=== PATIENT | male | born 1930 | race Caucasian/White ===

== ENCOUNTER 2018-01-26 13:48 | Inpatient (IN) | payer MEDICARE ==
[~2018-01-26] VITALS: Ht 322.6 cm; Wt 54.0 kg
--- NOTE | ~2018-01-26 | PN ---
PATIENT:BEVERLEY VALENTIN MEDICAL RECORD: [id number] LOCATION:[facility] ADMISSION DATE: 01/26/18 PROGRESS NOTE DATE OF SERVICE: 02/01/2018 SUBJECTIVE: The patient's case was discussed with staff. He has no new complaint. OBJECTIVE: The patient denies intent to harm himself or others. He generally tolerates his medicines well. ASSESSMENT: No change in diagnoses. PLAN: Current medicines and therapies have been reviewed, both will be maintained. His long-term prognosis is guarded. TRANSINT:[id number] Voice Confirmation ID: [id number] DOCUMENT ID: [id number] VIDYA MCELROY MD at 0924 CC: [id number] DICTATION DATE: 02/01/18 1021 ACADEMIC SERVICES COORDINATOR: 02/01/18 1058 ADM IN [place] [id number] [place] [address]
--- NOTE | ~2018-01-26 | PN ---
PATIENT:BEVERLEY VALENTIN MEDICAL RECORD: [id number] LOCATION:[facility] ADMISSION DATE: 01/26/18 PROGRESS NOTE DATE OF SERVICE: 02/06/2018 SUBJECTIVE: The patient's case was discussed with staff. He has no new complaint. OBJECTIVE: The patient denies intent to harm himself or others. He generally tolerates his medicines well. Eye contact is fair. ASSESSMENT: No change in diagnoses. PLAN: Brief supportive and educational interventions were made. Current medicines have been reviewed and will be maintained. The patient's long-term prognosis is guarded. TRANSINT:[id number] Voice Confirmation ID: [id number] DOCUMENT ID: [id number] VIDYA MCELROY MD at 1017 CC: [id number] DICTATION DATE: 02/06/18 1052 TAIL SAWYER: 02/06/18 1101 ADM IN [place] [id number] [place] [id number]
--- NOTE | ~2018-01-26 | PN ---
PATIENT:BEVERLEY VALENTIN MEDICAL RECORD: [id number] LOCATION:[facility] ADMISSION DATE: 01/26/18 PROGRESS NOTE DATE OF SERVICE: 02/08/2018 SUBJECTIVE: The patient's case was discussed with staff. He has no new complaint. OBJECTIVE: The patient is only partially oriented. He has pretty limited insight about his situation. He has tolerated his initial doses of Aricept well and it does not seem to have significantly affected his appetite. He is still not sleeping very well and I am going to increase the dose of his trazodone slightly. He has made some paranoid statements, but he has not been actively aggressive with the staff. ASSESSMENT: No change in diagnoses. PLAN: Current medicines have been reviewed and will be maintained. He will be treated with a slightly higher dose of trazodone to assist with sleep consolidation. TRANSINT:[id number] Voice Confirmation ID: [id number] DOCUMENT ID: [id number] VIDYA MCELROY MD at 0946 CC: [id number] DICTATION DATE: 02/08/18 1030 WEB MARKETING ANALYST: 02/08/18 1048 ADM IN [place] [id number] [place] [address]
--- NOTE | ~2018-01-26 | PN ---
PATIENT:BEVERLEY VALENTIN MEDICAL RECORD: [id number] LOCATION:[facility] ADMISSION DATE: 01/26/18 PROGRESS NOTE DATE OF SERVICE: 01/31/2018 SUBJECTIVE: The patient's case was discussed with staff. He has no new complaint. OBJECTIVE: The patient ate 100% of his meals yesterday and slept for 9 hours. He is extremely confused and only oriented to person. He denies any intent to harm himself or others. ASSESSMENT: No change in diagnoses. PLAN: Supportive and educational interventions are made. Long-term prognosis is guarded. TRANSINT:[id number] Voice Confirmation ID: [id number] DOCUMENT ID: [id number] VIDYA MCELROY MD at 0930 CC: [id number] DICTATION DATE: 01/31/18 1243 REAL TIME ANALYST: 01/31/18 1425 ADM IN [place] [id number] [place] [id number]
--- NOTE | ~2018-01-26 | PN ---
PATIENT:BEVERLEY VALENTIN MEDICAL RECORD: [id number] LOCATION:[facility] ADMISSION DATE: 01/26/18 PROGRESS NOTE DATE OF SERVICE: 02/07/2018 SUBJECTIVE: The patient's case was discussed with staff. He has no new complaint. OBJECTIVE: The patient is in good behavioral control with limited insight about his condition. He has had some diarrhea, but other than that, he is doing well. He is eating and sleeping well. He has not been aggressive, and he is actually wearing his oxygen and has had no combativeness today. ASSESSMENT: No change in diagnoses. PLAN: The patient will be maintained on current medicines, which I have reviewed. His long-term prognosis is guarded. TRANSINT:[id number] Voice Confirmation ID: [id number] DOCUMENT ID: [id number] VIDYA MCELROY MD at 1017 CC: [id number] DICTATION DATE: 02/07/18 1255 SEWER PIPE LAYER HELPER: 02/07/18 1316 ADM IN [place] [address] [place] [address]
--- NOTE | ~2018-01-26 | PN ---
PATIENT:BEVERLEY VALENTIN MEDICAL RECORD: [id number] LOCATION:[facility] ADMISSION DATE: 01/26/18 PROGRESS NOTE DATE OF SERVICE: 02/05/2018 SUBJECTIVE: The patient's case was discussed with staff. He has no new complaint. OBJECTIVE: The patient is impaired cognitively, but is eating well. He denies intent to harm himself or others. ASSESSMENT: No change in diagnoses. PLAN: Supportive and educational interventions were made. Long-term prognosis is guarded. I am going to increase the patient's Aricept to 10 mg at bedtime. I am encouraged by the improvement in his eating. TRANSINT:[id number] Voice Confirmation ID: [id number] DOCUMENT ID: [id number] VIDYA MCELROY MD at 1043 CC: [id number] DICTATION DATE: 02/05/18 1003 FINE GRADE BULLDOZER OPERATOR: 02/05/18 1013 ADM IN [place] [address] [place] [address]
--- NOTE | ~2018-01-26 | PN ---
PATIENT:BEVERLEY VALENTIN MEDICAL RECORD: [id number] LOCATION:[facility] ADMISSION DATE: 01/26/18 PROGRESS NOTE DATE OF SERVICE: 02/09/2018 SUBJECTIVE: The patient's case was discussed with staff. He has no new complaint. OBJECTIVE: The patient denies intent to harm himself or others. He did not eat very well yesterday, but he is now compliant with medicines, so I am encouraged by that. He still intermittently is removing his oxygen and requires very frequent redirection about that. He did sleep well last night. ASSESSMENT: No change in diagnoses. PLAN: The patient is in good behavioral control, although he is severely impaired cognitively. I am hopeful that he can reasonably be transitioned to a long-term care setting soon. His family wants him to return home, but I am not sure they are going to be able to handle him and there will be some additional information and education given so that they are making a truly informed consent about the level of care that he needs. TRANSINT:[id number] Voice Confirmation ID: [id number] DOCUMENT ID: [id number] VIDYA MCELROY MD at 0909 CC: [id number] DICTATION DATE: 02/09/18 0955 THREAD DRAWER: 02/09/18 1100 ADM IN [place] [address] [place] [address]
--- NOTE | ~2018-01-26 | PN ---
PATIENT:BEVERLEY VALENTIN MEDICAL RECORD: [id number] LOCATION:[facility] ADMISSION DATE: 01/26/18 PROGRESS NOTE DATE OF SERVICE: 02/04/2018 SUBJECTIVE: The patient's case was discussed with staff. He has no new complaint. OBJECTIVE: The patient is in good behavioral control. He was given trazodone last night to assist with sleep consolidation and it seems to have significantly helped. He is doing a little better about wearing his oxygen. He has not been combative, but then he has someone with him all the time to constantly attend to his needs and redirect him. I suspect that under different circumstances he may well have shown some aggressive behavior. ASSESSMENT: No change in diagnoses. PLAN: Supportive and educational interventions were made. Long-term prognosis is guarded. TRANSINT:[id number] Voice Confirmation ID: [id number] DOCUMENT ID: [id number] VIDYA MCELROY MD at 0954 CC: [id number] DICTATION DATE: 02/04/18 1313 VP PURCHASING: 02/04/18 1321 ADM IN [facility] [address] [place] [address]
--- NOTE | ~2018-01-26 | PN ---
PATIENT:BEVERLEY VALENTIN MEDICAL RECORD: [id number] LOCATION:[facility] ADMISSION DATE: 01/26/18 PROGRESS NOTE DATE OF SERVICE: 01/28/2018 SUBJECTIVE: The patient's case was discussed with staff. He has no new complaint. OBJECTIVE: The patient is in good behavioral control today. He is not eating very well. He has pretty limited insight about his situation and he has not been combative. He is wearing his oxygen, which I think is helping him think more clearly. It is evident that he has an advanced dementia. I am going to start him on Aricept for its cognitive enhancing properties. ASSESSMENT: No change in diagnoses. PLAN: The patient will be monitored for clinical changes associated with the use of the Aricept. His long-term prognosis is guarded. TRANSINT:[id number] Voice Confirmation ID: [id number] DOCUMENT ID: [id number] VIDYA MCELROY MD at 1212 CC: [id number] DICTATION DATE: 01/28/18 1039 DIRECTOR OF MARKETING OPERATIONS: 01/28/18 1100 ADM IN [facility] [address] [place] [address]
--- NOTE | ~2018-01-26 | PSY ---
PATIENT NAME:BEVERLEY VALENTIN MEDICAL RECORD: [id number] : 32 LOCATION:[facility] ADMISSION DATE: 01/26/18 ACCOUNT: [id number] PSYCHIATRIC EVALUATION DATE OF EVALUATION: 01/27/18 IDENTIFYING DATA: The patient is 87 years old and he is admitted to the hospital on a voluntary basis. CHIEF COMPLAINT: Aggression. HISTORY OF PRESENT ILLNESS: The patient is referred to us by [facility]. He was admitted there initially because of altered thought processes, but he has continued to show increasing confusion, paranoia, and aggression. He argues with his family. He has been refusing medications. He accuses his of having sold their home that they are living in and then he becomes angry and says he wants to sell the hospital that we are in and that he has every right to sell it. He cannot be redirected. He clearly is impaired cognitively in a manner consistent with a dementing illness. 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 He also has pulmonary hypertension along with mitral and tricuspid regurgitation. 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 PAST PSYCHIATRIC HISTORY: Negative with the records I have so far. I do not know that he has been diagnosed with dementia, but this is not a new mental status change. By that I mean his behaviors may have become a problem, but I cannot imagine that he has not been declining intellectually for a long time. FAMILY HISTORY: Significant for hypertension, coronary artery disease, and diabetes. ALLERGIES: No known drug allergies. CURRENT MEDICATIONS: Include aspirin, Lipitor, Plavix, Lopressor, hydralazine, Monopril, Vasotec and a variety of minerals and vitamins. SOCIAL HISTORY: The patient is . He has 2 adult children. 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 He is originally from [place] and was a welder railcar mechanic. MENTAL STATUS EXAMINATION: The patient is awake, alert and oriented to person only. His mood is flat. His affect is constricted. Thought processes are disorganized. He has severe impairment of his memory, concentration, and abstraction abilities. He denies any active intent to harm himself or others and denies psychotic symptoms. ASSETS: Supportive family members. LIABILITIES: Limited insight. DIAGNOSTIC IMPRESSION: AXIS I: Senile dementia of the Alzheimer's type with behavioral disturbances. AXIS II: None. AXIS III: Hypertension, diabetes, coronary artery disease, mitral and tricuspid regurgitation, pulmonary fibrosis. AXIS IV: Moderate stressors. AXIS V: Global assessment of functioning is 20. PLAN: At this time, the patient is admitted to the hospital secondary to aggressive behavior along with some delusional thoughts. He will be treated with both mood stabilizing and memory enhancing medications. His long-term prognosis is guarded. I know his wants to take him back home. They have been for 67 years. I am not sure that she has the ability to care for him, but it is early in this process and that is yet to be determined. TRANSINT:[id number] Voice Confirmation ID: [id number] DOCUMENT ID: [id number] VIDYA MCELROY MD at 1026 CC: [id number] DICTATION DATE: 01/27/18 1111 SALES SUPPORT ASSOCIATE: 01/27/18 1124 ADM IN [facility] [address] [place] [address]
--- NOTE | ~2018-01-26 | PN ---
PATIENT:BEVERLEY VALENTIN MEDICAL RECORD: [id number] LOCATION:[facility]AME Phillips[facility]olaDasia ADMISSION DATE: 01/26/18 PROGRESS NOTE DATE OF SERVICE: 02/03/2018 SUBJECTIVE: The patient's case was discussed with staff. He has no new complaint. OBJECTIVE: The patient denies intent to harm himself or others. He did not sleep very well last night. He did eat most of his food yesterday. He is not compliant with medications today, but cannot tell me why and does not really have recollection of not being compliant. ASSESSMENT: No change in diagnoses. PLAN: It is difficult to make adjustments in medication when the patient is not taking them consistently, but I am going to order some trazodone to assist with sleep consolidation. I hope that he takes that and I am thinking that if he does, he will sleep better and perhaps be more appropriate tomorrow and compliant with treatment. TRANSINT:[id number] Voice Confirmation ID: [id number] DOCUMENT ID: [id number] VIDYA MCELROY MD at 1254 CC: [id number] DICTATION DATE: 02/03/18 174 SPRING LAYER: 02/03/18 1856 ADM IN [facility] [address] [place] [address]
--- NOTE | ~2018-01-26 | PN ---
PATIENT:BEVERLEY VALENTIN MEDICAL RECORD: [id number] LOCATION:[facility] Li ADMISSION DATE: 01/26/18 PROGRESS NOTE DATE OF SERVICE: 02/11/2018 SUBJECTIVE: The patient was seen for daily rounds and his case was discussed with the staff. He has no new complaint. OBJECTIVE: The patient is oriented to person and place, but not to time or situation. His mood is flat. His affect is constricted. Thought processes are disorganized. He ate most of his meal yesterday and he did sleep 6-1/2 hours. The patient has pulmonary fibrosis and is not going to wear oxygen unless his oxygen saturation drops below 93%. ASSESSMENT: No change in diagnoses. PLAN: Supportive and educational interventions were made. Long-term prognosis is guarded. His medications have been reviewed and he has had no agitated behavior and so he is going to be transitioned out of the hospital tomorrow morning. TRANSINT:[id number] Voice Confirmation ID: [id number] DOCUMENT ID: [id number] VIDYA MCELROY MD at 1530 CC: [id number] DICTATION DATE: 02/11/18 0959 SENIOR RESEARCH CONSULTANT: 02/11/18 1045 ADM IN [facility] [address] [place] [address]
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
--- NOTE | ~2018-01-26 | PN ---
PATIENT:BEVERLEY VALENTIN MEDICAL RECORD: [id number] LOCATION:[facility] Li ADMISSION DATE: 01/26/18 PROGRESS NOTE DATE OF SERVICE: 02/02/2018 SUBJECTIVE: The patient's case was discussed with staff. He has no new complaint. OBJECTIVE: The patient denies intent to harm himself or others. He generally tolerates his medicines well. Eye contact is fair. ASSESSMENT: No change in diagnoses. PLAN: Brief supportive and educational interventions were made. Long-term prognosis is guarded. The patient refused his nighttime medicines. He has no recollection of this. I have reviewed his medicines and I am not going to adjust them based on the noncompliance. His long-term prognosis is exceedingly poor. He has a very late stage dementia and he has numerous, very serious chronic medical problems. TRANSINT:[id number] Voice Confirmation ID: [id number] DOCUMENT ID: [id number] VIDYA MCELROY MD at 1641 CC: [id number] DICTATION DATE: 02/02/18 0940 CONCRETE PAVING SUPERVISOR: 02/02/18 1001 ADM IN [facility] [address] [place] [address]
--- NOTE | ~2018-01-26 | DS ---
PATIENT:BEVERLEY VALENTIN :32 MEDICAL RECORD: [id number] DISCHARGE SUMMARY ADMISSION DATE: 01/26/18 DISCHARGE DATE: 02/12/18 IDENTIFYING DATA: The patient is 87 years old and he was admitted to the hospital on a voluntary basis because of aggression. The patient was referred to us by [facility], where he had initially been admitted because of confusion and paranoia associated with the aggression. Apparently, he had been refusing his medications and arguing with his family. He was accusing his of having sold their home, the very home they were living in and then he would become angry and saying he wanted to sell the hospital. He was quite confused. He was admitted for evaluation and treatment of these symptoms. HOSPITAL COURSE: The patient was admitted to the hospital and evaluated from both a medical, psychological, and social standpoint. He was treated with both mood stabilizing and memory enhancing medications. He did show improvement in his delusional thought content, but really no significant change in his underlying overall memory and cognitive abilities. He subsequently was transitioned out of the hospital and was placed in a setting where he could receive 24-hour a day care. DISCHARGE DIAGNOSES: AXIS I: Senile dementia of the Alzheimer's type with behavioral disturbances. AXIS II: None. AXIS III: Hypertension, diabetes, coronary artery disease, mitral and tricuspid regurgitation, pulmonary fibrosis. AXIS IV: Moderate stressors. AXIS V: Global assessment of functioning is 30. PLAN: At the time of discharge, the patient was not agitated, aggressive, or delusional. He was certainly severely impaired cognitively and certainly has some very serious chronic medical problems. He certainly does not represent a direct danger to others or himself. He very much does require 49-hzsq-v-day supervision in a skilled setting. Followup is to be with his primary care doctor. TRANSINT:[id number] Voice Confirmation ID: [id number] DOCUMENT ID: [id number] VIDYA MCELROY MD at 1203 CC: [id number] DICTATION DATE: 02/15/18 1519 WOMEN'S BASKETBALL COACH: 02/15/18 4347 DIS IN 02/12/18 [place] [id number] [place] [address]
--- NOTE | ~2018-01-26 | PN ---
PATIENT:BEVERLEY VALENTIN MEDICAL RECORD: [id number] LOCATION:[facility]AME Li ADMISSION DATE: 01/26/18 PROGRESS NOTE DATE OF SERVICE: 02/10/2018 SUBJECTIVE: The patient's case was discussed with staff. He has no new complaint. OBJECTIVE: The patient is sleeping reasonably well. He eats reasonably well. He is wearing his oxygen better, but for some reason he would not take his nighttime medicines. He has no explanation for this. In fact, I do not think he really remembered. ASSESSMENT: No change in diagnoses. PLAN: The patient will be maintained on current medicines, which I have reviewed. His long-term prognosis is guarded. I anticipate he can be transitioned out of the hospital soon if this level of improvement continues. TRANSINT:[id number] Voice Confirmation ID: [id number] DOCUMENT ID: [id number] VIDYA MCELROY MD at 0935 CC: [id number] DICTATION DATE: 02/10/18 1046 MATERIALS PLANNER/PRODUCTION PLANNER: 02/10/18 1140 ADM IN [place] [id number] [place] [address]
--- NOTE | ~2018-01-26 | PN ---
PATIENT:BEVERLEY VALENTIN MEDICAL RECORD: [id number] LOCATION:[facility]AME Li ADMISSION DATE: 01/26/18 PROGRESS NOTE DATE OF SERVICE: 01/30/2018 SUBJECTIVE: The patient's case was discussed with staff. He has no new complaint. OBJECTIVE: The patient denies intent to harm himself or others. He generally tolerates his medicines well. ASSESSMENT: No change in diagnoses. PLAN: The patient is not eating well and cannot give an explanation for this. It has been going on for most of the time he has been here. I am going to prescribe Megace to assist with appetite stimulation. He is not seriously underweight, in fact he is not underweight at all, but he certainly cannot go on not eating. TRANSINT:[id number] Voice Confirmation ID: [id number] DOCUMENT ID: [id number] VIDYA MCELROY MD at 1241 CC: [id number] DICTATION DATE: 01/30/18 1426 GRADING MACHINE FEEDER: 01/30/18 1450 ADM IN [place] [address] [place] [address]
--- NOTE | ~2018-01-26 | PN ---
PATIENT:BEVERLEY VALENTIN MEDICAL RECORD: [id number] LOCATION:JAME Li ADMISSION DATE: 01/26/18 PROGRESS NOTE DATE OF SERVICE: 02/12/2018 SUBJECTIVE: The patient's case was discussed with staff. He has no new complaint. OBJECTIVE: The patient is in good behavioral control with limited insight about his condition. He is severely impaired cognitively. ASSESSMENT: No change in diagnoses. PLAN: Current medicines and therapies have been reviewed. Both will be maintained. His long-term prognosis is guarded. I am going to transition him to the [facility] today. Followup will be with his primary care [facility] physician. TRANSINT:[id number] Voice Confirmation ID: [id number] DOCUMENT ID: [id number] VIDYA MCELROY MD at 2015 CC: [id number] DICTATION DATE: 02/12/18 1056 RELATIONSHIP ADVISOR: 02/12/18 1709 DIS IN 02/12/18 [place] [address] [place] [address]
[2018-01-26] MEDS ORDERED: BAYER CHEWABLE81 MG PO (14:35)
[2018-01-26] MEDS ORDERED: LIPITOR40 MG PO (14:35)
[2018-01-26] MEDS ORDERED: PLAVIX75 MG PO (14:36)
[2018-01-26] MEDS ORDERED: VASOTEC2.5 MG PO (14:38)
[2018-01-26] MEDS ORDERED: MONOPRIL10 MG PO (14:38)
[2018-01-26] MEDS ORDERED: HYDRALAZINE HCL10 MG PO (14:42)
[2018-01-26] MEDS ORDERED: LOPRESSOR25 MG PO (14:43)
[2018-01-26] MEDS ORDERED: HYDRALAZINE HCL25 MG PO (14:43)
[2018-01-26] MEDS ORDERED: THEREMS-M1 TAB PO (14:44)
[2018-01-26 14:50] VITALS: BP 193/89; BMI 24.6
[2018-01-26] MEDS ORDERED: NINTEDANIB PO (15:47)
[2018-01-26 17:00] LABS: BASOPHILS 0.2 % (0-2); EOSINOPHILS 2.6 % (0-7); HEMATOCRIT 40.8 % (42.0-54.0); HEMOGLOBIN 13.7 g/dL (13.5-17.5); IMMATURE GRANULOCYTES 0.1 % (0-5); LYMPHOCYTES 12.3 % (15-50); MCH 32.3 pg (26.0-34.0); MCHC 33.6 g/dL (31.0-37.0); MCV 96.2 fL (80.0-100.0); NEUTROPHILS 75.8 % (40-80); PLATELET COUNT 181 10x3/uL (130-400); RBC 4.24 10x6/uL (4.20-6.10); RDW 14.4 % (11.5-14.5); WBC 11.6 10x3/uL (4.8-10.8)
[2018-01-26 17:51] LABS: ALBUMIN 3.3 g/dL (3.4-5.0); ANION GAP 20.6 mmol/L (8-16); BILIRUBIN - TOTAL 0.99 mg/dL (0.2-1.3); CARBON DIOXIDE 20.7 mmol/L (21.0-32.0); CHOL - HDL RATIO 2.5 ratio (2.3-4.9); CREATININE - SERUM 1.1 mg/dL (0.6-1.3); LDL-HDL RATIO 1.2 ratio (1.5-3.5); POTASSIUM - SERUM 3.3 mmol/L (3.5-5.1); PROTEIN - SERUM 7.2 g/dL (6.4-8.2); THYROID STIMULATING HORMONE 2.27 uIU/mL (0.36-3.74)
[2018-01-26 20:15] VITALS: BP 168/89
[2018-01-27 09:40] VITALS: BMI 24.6
[2018-01-27 09:47] VITALS: BP 167/86
[2018-01-27 20:34] VITALS: BP 139/66
[2018-01-28 07:33] LABS: RAPID PLASMA REAGIN Non Reactive (Non Reactive); VITAMIN D 25 HYDROXY 43.4 ng/mL (30.0-100.0)
[2018-01-28 10:22] LABS: FOLATE (FOLIC ACID) - SERUM >20.0 ng/mL (>3.0)
[2018-01-28 11:22] VITALS: BP 186/101
[2018-01-28 11:34] VITALS: BP 186/101
[2018-01-28 20:32] VITALS: BP 238/98
[2018-01-29 08:59] VITALS: BP 145/91
[2018-01-29 10:33] LABS: HEMOGLOBIN 14.8 g/dL (13.5-17.5); LYMPHOCYTES 13.4 % (15-50); MCH 31.2 pg (26.0-34.0); MCHC 33.6 g/dL (31.0-37.0); MCV 92.8 fL (80.0-100.0); MEAN PLATELET VOLUME 12.1 fL (7.4-10.4); NEUTROPHILS 78.3 % (40-80); PLATELET COUNT 185 10x3/uL (130-400); RBC 4.74 10x6/uL (4.20-6.10); RDW 14.1 % (11.5-14.5); WBC 9.8 10x3/uL (4.8-10.8)
[2018-01-29 20:02] VITALS: BP 135/70
[2018-01-30 10:47] VITALS: BP 149/71
[2018-01-30 19:32] VITALS: BP 119/55
[2018-01-31 08:05] VITALS: BP 101/60
[2018-01-31 20:00] VITALS: BP 143/60
[2018-02-01 01:16] LABS: APPEARANCE CLEAR (CLEAR); BILIRUBIN NEGATIVE (NEGATIVE); COLOR YELLOW (YELLOW); GLUCOSE NEGATIVE (NEGATIVE); KETONE NEGATIVE (NEGATIVE); NITRITE NEGATIVE (NEGATIVE); PROTEIN 2+ mg/dL (NEGATIVE); SPECIFIC GRAVITY 1.025 (1.005-1.020); UROBILINOGEN NORMAL (NORMAL)
[2018-02-01 01:17] LABS: BACTERIA MODERATE /hpf (NONE SEEN); EPITHELIAL CELLS 0-5 /hpf (0-5); RED CELLS - URINE 0-5 /hpf (0-5); WHITE CELLS - URINE 0-5 /hpf (0-5)
[2018-02-01 01:18] LABS: MUCUS <1+ /lpf (NONE SEEN)
[2018-02-01 10:01] VITALS: BP 159/76
[2018-02-01 20:39] VITALS: BP 154/61
[2018-02-02 09:26] VITALS: BP 155/71
[2018-02-02 19:31] VITALS: BP 158/71
[2018-02-03 09:18] VITALS: BP 162/61
[2018-02-03 19:49] VITALS: BP 138/72
[2018-02-04 10:12] VITALS: BP 175/58
[2018-02-04 21:12] VITALS: BP 114/63
[2018-02-05 09:11] VITALS: BP 156/69
[2018-02-05 20:10] VITALS: BP 148/57
[2018-02-06 11:01] VITALS: BP 170/75
[2018-02-06 20:24] VITALS: BP 163/68
[2018-02-07 08:00] VITALS: BP 171/80
[2018-02-07 21:01] VITALS: BP 172/72
[2018-02-08 07:00] VITALS: BP 199/85
[2018-02-08 19:22] VITALS: BP 178/66
[2018-02-09 07:00] VITALS: BP 171/86
[2018-02-09 20:19] VITALS: BP 157/73
[2018-02-10 08:00] VITALS: BP 148/69
[2018-02-10 19:23] VITALS: BP 169/77
[2018-02-11 09:21] VITALS: BP 155/63
[2018-02-11 09:22] VITALS: BP 155/63
[2018-02-11] MEDS ORDERED: Aricept PO (10:01)
[2018-02-11] MEDS ORDERED: MONOPRIL10 MG PO (10:01)
[2018-02-11] MEDS ORDERED: DESERYL50 M2 PO (10:02)
[2018-02-11] MEDS ORDERED: MEGACE40 MG PO (10:02)
[2018-02-11] MEDS ORDERED: PERPHENAZINE2 MG PO (10:02)
[2018-02-11] MEDS ORDERED: CALMOSEPTINE OI71 GM TOPICAL (10:02)
[2018-02-11] MEDS ORDERED: THERAGRAN M [BK1 TAB PO (10:03)
[2018-02-11 10:25] VITALS: BMI 23.8
[2018-02-11 19:38] VITALS: BP 148/53
[2018-02-12 08:30] VITALS: BP 155/68
[2018-02-12 13:58] VITALS: BP 166/87; Ht 322.6 cm; Wt 54.0 kg
== END 2018-02-12 14:11 | DRG 57 ==
LOC: D.PSYCH 13:48
PROVIDERS: Family Medicine; Psychiatry & Neurology Psychiatry
DX: G30.1 Alzheimer's disease with late onset (principal); F02.81 Dementia in other diseases classified elsewhere, unspecified severity, with behavioral disturbance; N39.0 Urinary tract infection, site not specified; I10 Essential (primary) hypertension; E11.9 Type 2 diabetes mellitus without complications; I25.10 Atherosclerotic heart disease of native coronary artery without angina pectoris; I08.1 Rheumatic disorders of both mitral and tricuspid valves; J84.10 Pulmonary fibrosis, unspecified; I27.20 Pulmonary hypertension, unspecified; K27.9 Peptic ulcer, site unspecified, unspecified as acute or chronic, without hemorrhage or perforation; S00.411A Abrasion of right ear, initial encounter; X58.XXXA Exposure to other specified factors, initial encounter; K52.9 Noninfective gastroenteritis and colitis, unspecified